=== PATIENT | male | born 1940 | race Caucasian/White ===

== ENCOUNTER 2019-06-02 17:17 | Emergency (ER) | payer MEDICARE ==
[~2019-06-02] VITALS: Ht 175.3 cm; Wt 105.6 kg
[2019-06-02 18:09] LABS: BASO # 0.1 10^3/uL (0.0-0.2); BASO % 0.7 % (0.0-1.0); EOS # 0.4 10^3/uL (0.0-0.50); EOS % 5.3 % (0.0-3.0); HEMOGLOBIN 14.1 g/dl (13.5-17.5); LYMPH # 1.2 10^3/uL (1.5-4.5); LYMPH % 17.8 % (24.0-44.0); MEAN CORPUSCULAR HEMOGLOBIN 33.1 pg (27.0-33.0); MEAN CORPUSCULAR HGB CONC 35.3 g/dl (32.0-36.5); MEAN CORPUSCULAR VOLUME 93.9 fl (80.0-96.0); MONO # 0.6 10^3/uL (0.0-0.8); NEUTROPHILS # 4.7 10^3/uL (1.8-7.7); NEUTROPHILS % 67.3 % (36.0-66.0); PLATELET COUNT, AUTOMATED 173 10^3/uL (150-450); RED BLOOD COUNT 4.26 10^6/uL (4.30-6.10)
[2019-06-02 18:21] LABS: INR 1.03; PROTHROMBIN TIME 13.2 SECONDS (11.8-14.0)
[2019-06-02 18:39] LABS: CALCIUM LEVEL 9.9 MG/DL (8.8-10.2); CREATININE FOR GFR 2.07 MG/DL (0.70-1.30); GLOMERULAR FILTRATION RATE 33.3 (>42); POTASSIUM SERUM 4.1 MEQ/L (3.5-5.1)
[2019-06-02] MEDS ORDERED: RIVAROXABAN 15 MG TAB (XARELTO) PO ONE (20:15)
[2019-06-02] MEDS ORDERED: TOPI25TA10 PO (20:15)
[2019-06-02] MEDS ORDERED: FURO20TA2 PO (20:15)
[2019-06-02] MEDS ORDERED: SPIR-10 PO (20:15)
[2019-06-02] MEDS ORDERED: LOSA25TA14 PO (20:15)
[2019-06-02] MEDS ORDERED: TRAZ-252 PO (20:15)
[2019-06-02] MEDS ORDERED: DONE10TA90 PO (20:15)
[2019-06-02] MEDS ORDERED: CARV6.25 PO (20:15)
[2019-06-02] MEDS ORDERED: VITA500054 PO (20:15)
[2019-06-02] MEDS ORDERED: FINA5TAB2 PO (20:15)
[2019-06-02] MEDS ORDERED: ALFU10TA2 PO (20:15)
[2019-06-02 20:19] VITALS: BP 129/70
[2019-06-02] MEDS ORDERED: XARE15TA PO (20:25)
== END 2019-06-02 20:30 | disposition home or self-care (01) ==
LOC: M ED 17:17
DX: I82.401 Acute embolism and thrombosis of unspecified deep veins of right lower extremity (principal); I48.91 Unspecified atrial fibrillation; M10.9 Gout, unspecified; Z95.0 Presence of cardiac pacemaker; Z88.8 Allergy status to other drugs, medicaments and biological substances; Z79.899 Other long term (current) drug therapy; Z79.01 Long term (current) use of anticoagulants; Z87.891 Personal history of nicotine dependence

== ENCOUNTER → 2019-06-02 | Outpatient (CLI) | payer MEDICARE ==
[~2019-06-02] MED LIST: ALFU10TA2 PO; CARV6.25 PO; DONE10TA90 PO; FINA5TAB2 PO; FURO20TA2 PO; LOSA25TA14 PO; SPIR-10 PO; TOPI25TA10 PO; TRAZ-252 PO; VITA500054 PO; XARE15TA PO
--- NOTE | 2019-06-02 17:21 | REP ---
HISTORY: Pain and swelling. Multiple ultrasonographic images of the deep venous structures of the right thigh were obtained from the level of the common femoral vein to the popliteal vein along with Doppler interrogative techniques, color flow imaging and augmentation with compressive techniques. There is abnormal echogenic material seen in the common femoral vein to and including the popliteal vein. These vessels are noncoaptable. Augmentation shows a decreased response. IMPRESSION: Positive deep vein thrombosis right thigh as described above. Electronically Signed by Willie Peng DO 06/02/2019 06:16 P
== END ==
LOC: M RAD 16:17
PROVIDERS: ATTEND Physician Assistant
DX: I82.401 Acute embolism and thrombosis of unspecified deep veins of right lower extremity (principal); M79.661 Pain in right lower leg

== ENCOUNTER 2020-02-20 09:11 | Emergency (ER) | payer MEDICARE ==
[~2020-02-20] VITALS: Ht 177.8 cm; Wt 114.5 kg
[~2020-02-20 09:11] MED LIST changes: -ALFU10TA2 PO; +ALFU10TA3 PO
[2020-02-20] MEDS ORDERED: XARE15TA PO (09:35)
[2020-02-20 10:31] LABS: HEMATOCRIT 42.8 % (42.0-52.0); MEAN CORPUSCULAR HEMOGLOBIN 30.6 pg (27.0-33.0); MEAN CORPUSCULAR HGB CONC 32.7 g/dl (32.0-36.5); MEAN CORPUSCULAR VOLUME 93.7 fl (80.0-96.0); PLATELET COUNT, AUTOMATED 174 10^3/uL (150-450); RED BLOOD COUNT 4.57 10^6/uL (4.30-6.10)
[2020-02-20 10:42] LABS: INR 1.62
[2020-02-20 10:43] LABS: PARTIAL THROMBOPLASTIN TIME 38.8 SECONDS (25.0-38.4)
[2020-02-20 11:25] VITALS: BP 134/78
--- NOTE | 2020-02-20 12:04 | ED PDOC ---
Post-Departure Follow-Up Patient notified he can stop Xarelto for a maximum of 2-3 days. Then he is to re -start normal dose. Patient expressed understanding KAITLYN DEL VALLE PA-C February 20, 2020 12:04
== END 2020-02-20 11:44 | disposition home or self-care (01) ==
LOC: M ED 09:11
DX: R04.0 Epistaxis (principal); I48.91 Unspecified atrial fibrillation; I10 Essential (primary) hypertension; E78.5 Hyperlipidemia, unspecified; Z95.0 Presence of cardiac pacemaker; Z88.8 Allergy status to other drugs, medicaments and biological substances; Z79.899 Other long term (current) drug therapy; Z79.01 Long term (current) use of anticoagulants